=== PATIENT | female | born 1960 | race Caucasian/White ===

== ENCOUNTER → 2024-03-28 10:17 | Outpatient (REF) | payer OTHER, SELFPAY | LOC: RAD 10:17 | PROVIDERS: ATTENDING PHYSICIAN Internal Medicine; FAMILY PHYSICIAN Internal Medicine | DX: M25.50 Pain in unspecified joint (principal) | CPT/HCPCS: 72050; 72110; 72202; 73130 ==

== ENCOUNTER → 2024-05-10 08:26 | Outpatient (REF) | payer OTHER, SELFPAY | LOC: RAD 08:26 | PROVIDERS: ATTENDING PHYSICIAN Internal Medicine; FAMILY PHYSICIAN Internal Medicine | DX: M25.549 Pain in joints of unspecified hand (principal) | CPT/HCPCS: 76882 ==

== ENCOUNTER → 2025-04-10 14:29 | Outpatient (REF) | payer OTHER, SELFPAY | LOC: RCS 14:29 | PROVIDERS: ATTENDING PHYSICIAN Student in an Organized Health Care Education/Training Program; FAMILY PHYSICIAN Nurse Practitioner Adult Health | DX: Q21.10 Atrial septal defect, unspecified (principal) | CPT/HCPCS: 93306 ==